=== PATIENT | male | born 1945 | race Hispanic/Latino ===

== ENCOUNTER 2023-04-07 16:03 | Emergency (ER) | payer SELFPAY ==
[2023-04-07 17:32] LABS: #Basophils 0.1 10x3/uL (0.0-0.2); #Eosinphils 0.6 10x3/uL (0.0-0.5); #Monocytes 0.8 10x3/uL (0.0-1.1); #Neutrophils 6.7 10x3/uL (1.5-8.4); %Basophils 0.7 % (0.0-2.0); %Lymphocytes 16.6 % (18.0-47.0); %Monocytes 8.4 % (0.0-10.0); %Neutrophils 67.5 % (40.0-75.0); ALT (SGPT) 19 U/L (8-55); AST (SGOT) 23 U/L (5-34); Albumin 3.8 g/dL (3.4-4.8); Alkaline Phosphatase 108 U/L (40-110); Anion Gap 15 mmol/L (10-20); BUN (Urea Nitrogen) 37 mg/dL (8.4-25.7); Bilirubin, Total 0.3 mg/dL (0.2-1.2); Calc. Creatinine Clearance 0 mL/min (70-130); Calcium 8.1 mg/dL (7.8-10.44); Carbon Dioxide 17 mmol/L (23-31); Chloride 115 mmol/L (98-107); Estimated GFR 9; Globulin 3.8 g/dL (2.4-3.5); Glucose 119 mg/dL (83-110); Hematocrit 26.7 % (38.8-50.0); Hemoglobin 8.7 g/dL (13.5-17.5); Mean Corpuscular HGB CONC 32.6 g/dL (32.0-36.0); Mean Corpuscular Hemoglobin 29.3 pg (27.0-33.0); Mean Corpuscular Volume 89.9 fl (81.2-95.1); Mean Platelet Volume 9.9 fl (7.4-10.4); Platelet Count 252 10x3/uL (150-450); Protein, Total 7.6 g/dL (5.8-8.1); RBC Distribution Width 13.4 % (11.5-14.5); Red Blood Cell (RBC) Count 2.97 10x6/uL (4.32-5.72); Sodium 140 mmol/L (136-145); White Blood Cell (WBC) Count 9.9 10x3/uL (3.5-10.5)
[2023-04-07 18:57] LABS: Actual Bicarbonate (HCO3v) 15.8 mEq/L (22-28); Calcium, Ionized (venous) 0.94 mmol/L (1.16-1.32); Chloride (VBG) 114 mmol/L (98-106); Hematocrit-VBG 28 % (42.0-52.0); Hemoglobin (Hb) 9.6 g/dL (12.6-17.4); Potassium (VBG) 6.46 mmol/L (3.70-5.30); Puncture Site Other Site; RapidComm Collect By CBN; Sodium 140.9 mmol/L (133-146); pH (venous) 7.497 (7.32-7.43)
[2023-04-07] MEDS ORDERED: Dextrose 50% Abboject 50 ML SYRINGE ONE (18:57)
[2023-04-07] MEDS ORDERED: Insulin Regular 300 UNITS/3 ML VIAL ONE (18:58)
[2023-04-07 19:13] LABS: Troponin I 0.023 ng/mL (< 0.028)
[2023-04-07] MEDS ORDERED: LOKELMA 10 GM PACKET PO SCH (20:00)
[2023-04-07] MEDS ORDERED: hydrALAZINE 20 MG/ML VIAL ONE (23:04)
== END 2023-04-07 23:24 | disposition short-term general hospital (02) ==
LOC: CSHERS 16:03
DX: I12.9 Hypertensive chronic kidney disease with stage 1 through stage 4 chronic kidney disease, or unspecified chronic kidney disease (principal); E11.22 Type 2 diabetes mellitus with diabetic chronic kidney disease; N18.9 Chronic kidney disease, unspecified; N17.9 Acute kidney failure, unspecified; E87.5 Hyperkalemia; E78.5 Hyperlipidemia, unspecified; Z79.899 Other long term (current) drug therapy; Z79.4 Long term (current) use of insulin; Z79.84 Long term (current) use of oral hypoglycemic drugs
CPT/HCPCS: 36415; 36416; 76770; 80053; 82805; 84484; 85025; 93005; 94640; 94760; 96374; 96375; J0360; J1815; J7611; J7999